=== PATIENT | female | born 1950 | race Asian ===

== ENCOUNTER 2025-02-03 09:42 | Emergency (ER) | payer OTHER ==
[~2025-02-03] VITALS: Ht 157.5 cm; Wt 49.3 kg
[2025-02-03 09:46] VITALS: BP 188/92; PULSE 101; RESP 15; O2SAT 97
--- NOTE | 2025-02-03 11:09 | Physician Documentation ---
History of Present Illness ~ Chief Complaint: Mechanical Fall Stated Complaint: HIGH BLOOD PRESSURE Time Seen by MD: 10:01 HPI Patient is seen today with complaints of sustaining a ground level fall where she stumbled backwards in hit her head on the wall yesterday. They state that after that her blood pressure was high in the 180 systolic in his was concerning to them. Patient denies any chest pain or shortness of breath or abdominal pain or nausea, vomiting, diarrhea or altered mental status. Patient states she is on Plavix. Patient denies any headache or changes in vision or hearing or nausea, vomiting, diarrhea or chest pain or shortness of breath. She has no other concern or complaint at this time. Medication Reconciliation Allergies: Coded Allergies: No Known Allergies (Unverified , 02/03/25) Review of Systems Constitutional: Denies: chills, fever, weakness Eyes: Denies: pain, blurred vision ENT: Denies: ear pain, nose pain, throat pain, mouth pain Respiratory: Denies: cough, shortness of breath Cardiovascular: Denies: chest pain, palpitations Gastrointestinal: Denies: abdominal pain, nausea, vomiting Genitourinary: Denies: burning, dysuria Female Genitalia: Denies: vaginal discharge, pelvic pain Neurological: Denies: headache, dizziness Musculoskeletal: Denies: pain, swelling Integumentary: Denies: rash, lesions Allergic/Immunologic: Denies: hives, itching Hematologic/Lymphatic: Denies: no symptoms reported Psychiatric: Denies: depression, anxiety Physical Exam Vital Signs: Temperature: 97.4, Source: Temporal, Heart Rate: 101, Respiratory Rate: 15, BP: 188/92, Pulse Oximetry: 97, Weight: 49.300 Physical Exam General: Awake and Alert, no acute distress. HEENT: On exam I do not appreciate any significant trauma of the scalp. I do not appreciate any swelling. And no bleeding. Conjunctiva pink, Sclera clear, Mucus Membranes moist. Neck: Supple without masses and tenderness. Resp: Unlabored. Lungs clear to auscultation bilaterally. Heart: Regular Rate and rhythm, normal S1 and S2 without murmur, rub or gallop. Abdomen: Soft and non tender no organomegaly Extremities: No cyanosis,clubbing or edema. Skin: Warm and Dry. Progress Results/Orders Results/Orders Vital Signs 02/03/25 09:46 Temp 97.4 Pulse 101 Resp 15 B/P (MAP) 188/92 Pulse Ox 97 Medical Decision Making Findings Patient is seen today with complaints of sustaining a ground level fall where she stumbled backwards in hit her head on the wall yesterday. They state that after that her blood pressure was high in the 180 systolic in his was concerning to them. Patient denies any chest pain or shortness of breath or abdominal pain or nausea, vomiting, diarrhea or altered mental status. Patient states she is on Plavix. Patient denies any headache or changes in vision or hearing or nausea, vomiting, diarrhea or chest pain or shortness of breath. She has no other concern or complaint at this time. After patient was allowed to rest and calm down and doing some breathing exercises, the patient's heart rate slowed to around 90 beats per minute and her blood pressure came down to 154 systolic. Patient's history and physical exam findings do not indicate need for any further eval and treatment. I did offer head CT given patient is on blood thinners however the patient and daughter were extremely concerned about pain for the head CT and we decided to forego the head CT at this time. Patient was given very explicit instructions to return to the ED immediately should she experience any dizziness or severe headache or change in mental status. They voiced understanding. We will continue close follow up for her hypertension with her primary care provider. Prescription of clonidine 0.1 mg tablets to be taken as needed for spikes in blood pressure up to twice a day sent to patient's pharmacy. Departure Disposition: HOME / SELF CARE / HOMELESS Impression: Primary Impression: Fall Qualified Codes: W19.XXXA - Unspecified fall, initial encounter Additional Impression: Hypertensive urgency Condition: Improved Discharge Instructions: Fall Prevention in the Home, Adult, [id number] Additional Instructions: After patient was allowed to rest and calm down and doing some breathing exercises, the patient's heart rate slowed to around 90 beats per minute and her blood pressure came down to 154 systolic. Patient's history and physical exam findings do not indicate need for any further eval and treatment. I did offer head CT given patient is on blood thinners however the patient and daughter were extremely concerned about pain for the head CT and we decided to forego the head CT at this time. Patient was given very explicit instructions to return to the ED immediately should she experience any dizziness or severe headache or change in mental status. They voiced understanding. We will continue close follow up for her hypertension with her primary care provider. Prescription of clonidine 0.1 mg tablets to be taken as needed for spikes in blood pressure up to twice a day sent to patient's pharmacy. Referrals: NO PRIMARY CARE PROVIDER (PCP) Prescriptions Clonidine HCl (Clonidine HCl) 0.1 Mg Tablet 1 TAB PO BID for htn for 15 Days, #15 TAB 0 Refills Prov: CAROLINA AGUILA 02/03/25 Signature Scribe Signature: No scribe Attestation: No scribe CAROLINA AGUILA Feb 03, 2025 11:09
[2025-02-03] MEDS ORDERED: CLON0.1T2 PO (11:19)
[2025-02-03 11:23] VITALS: TEMP 97.4
== END 2025-02-03 11:29 | disposition home or self-care (01) ==
LOC: ER 09:43
DX: I16.0 Hypertensive urgency (principal); Z79.02 Long term (current) use of antithrombotics/antiplatelets; W01.0XXA Fall on same level from slipping, tripping and stumbling without subsequent striking against object, initial encounter; Y93.89 Activity, other specified; Y92.89 Other specified places as the place of occurrence of the external cause; Y99.8 Other external cause status
CPT/HCPCS: 99283; 99284

== ENCOUNTER 2025-02-05 10:10 | Emergency (ER) | payer OTHER ==
[~2025-02-05] VITALS: Ht 157.5 cm; Wt 49.3 kg
[~2025-02-05 10:10] MED LIST: CLON0.1T2 PO
[2025-02-05 10:24] VITALS: TEMP 99.3
--- NOTE | 2025-02-05 10:57 | RADIOLOGY REPORT ---
CT CT HEAD INDICATION: FALL WITH HEADSTRIKE EXAM DATE: 02/05/2025 10:40 AM COMPARISON: None RADIATION DOSE: CTDIvol: 53 mGy, DLP: 906 mGy*cm PROCEDURE: CT scans of the head were obtained from the vertex to the skull base. Sagittal and coronal reconstructions were provided. All CT scans at this medical facility are performed using dose modulation techniques as appropriate t o a performed exam including the following: Automated exposure control was utilized; adjustment of th e MA and/or KV according to patient size; and use of iterative reconstruction technique. FINDINGS: There is sulcal and ventricular prominence. The brainshows normal morphology and waters-whi te matter differentiation, without intracranial hemorrhage, extra-axial fluid collection, mass effect or acute large vessel infarct. The ventricles are normal in size. The basal cisterns are patent. The skull and visible facial bones are intact. The paranasal sinuses, mastoid air cells and middle ear c avities are well-aerated. The soft tissues of the scalp are unremarkable. IMPRESSION: No acute intracranial abnormality.
--- NOTE | 2025-02-05 13:19 | Physician Documentation ---
History of Present Illness ~ Chief Complaint: Mechanical Fall Stated Complaint: RECHECK Time Seen by MD: 13:18 HPI 74-year-old female on Plavix who presents with headaches, after a fall 2 days ago. The patient tells me that she was here 2 days ago after a fall, where she hit the back of her head. At that time she declined a head CT. However, since that time she continues to have headache and her blood pressure is elevated. Her daughter states she is very anxious about her head and is concerned because she did not get the head CT. No dizziness, vision changes, nausea or vomiting, or other new or different symptoms. No neurologic changes to the arms or legs. Medication Reconciliation Allergies: Coded Allergies: No Known Allergies (Unverified , 02/03/25) Scheduled Clonidine HCl (Clonidine HCl), 1 TAB PO BID Review of Systems Gastrointestinal: Denies: nausea, vomiting Neurological: Reports: headache; Denies: dizziness, fainting Physical Exam Vital Signs: Temperature: 99.3, Source: Temporal, Heart Rate: 97, Respiratory Rate: 18, BP: 151/71, Pulse Oximetry: 97, Weight: 49.300 Oxygen Flow Rate: 0 Physical Exam General: This is a pleasant and overall well-appearing older female, daughter at bedside HEENT: Small hematoma to the right posterior scalp, with no laceration. No other scalp abnormalities. No facial droop. Vision grossly intact. oropharynx is moist Neck: No midline tenderness on palpation of the C-spine Heart: Regular rate and rhythm, normal-appearing peripheral perfusion Lungs: normal work of breathing, normal oxygen saturation on room air Neuro: Alert and oriented, no focal deficits Psychiatric: Calm and cooperative with exam Progress Results/Orders Results/Orders Vital Signs 02/05/25 02/05/25 02/05/25 02/05/25 10:24 13:20 13:25 14:20 Temp 99.3 Pulse 97 95 92 Resp 18 18 16 B/P (MAP) 151/71 164/90 (114) 146/72 Pulse Ox 97 97 98 O2 Flow Rate 0 0 EKG/XRAY/CT/US/VASC/MRI CT : Impression I personally reviewed the CT scan, and this shows no acute fracture, intracranial hemorrhage, or mass Medical Decision Making Additional info obtained from: old records Findings Per chart review, the patient was seen here in the emergency department 2 days ago, 6-16, with a fall and minor head injury. At that time she declined to have a head CT performed although it was offered. Differential Dx:Considerations: Include: Closed head injury, Fracture(s), Cerebral contusion Additional Comment Differential includes intracranial hemorrhage, subarachnoid hemorrhage, subdural Assessment The patient presents with a headache and high blood pressure, 2 days after a head injury. A head CT was obtained that shows no acute fracture or intracranial hemorrhage. While observed here in the ER, her blood pressure was not dangerously elevated and a doubt hypertensive emergency. I suspect her blood pressure is elevated due to anxiety related to her head injury. She was reassured, given home care instructions, and paperwork was filled out for her travel insurance. Departure Time of Disposition: 13:50 Disposition: 01 HOME / SELF CARE / HOMELESS Admission Level of Care: Ortho Impression: Primary Impression: Closed head injury Additional Impression: Headache Condition: Stable Discharge Instructions: Head Injury, Adult, [id number] Referrals: NO PRIMARY CARE PROVIDER (PCP) Education Educated: Patient, Family Educated regarding: diagnosis Signature Scribe Signature: bianka Attestation: SANTIAGO Guaman MD Feb 05, 2025 13:19
[2025-02-05 14:20] VITALS: BP 146/72; PULSE 92; RESP 16; O2SAT 98
== END 2025-02-05 14:23 | disposition home or self-care (01) ==
LOC: ER 10:11
DX: S00.03XA Contusion of scalp, initial encounter (principal); W19.XXXA Unspecified fall, initial encounter; Y93.89 Activity, other specified; Y92.89 Other specified places as the place of occurrence of the external cause; Y99.8 Other external cause status
CPT/HCPCS: 70450; 99284